=== PATIENT | female | born 1945 | race Caucasian/White ===

== ENCOUNTER → 2019-01-20 | Day surgery (SDC) | payer MEDICARE, BC ==
[~2019-01-20] MED LIST: Lactated Ringers 1,000 ML IV SCH; Propofol 200 MG/20 ML SDV IV ONE
--- NOTE | 2019-01-20 10:30 | OR ---
DATE OF OPERATION: 01/20/2019 PREOPERATIVE DIAGNOSIS: FOLLOWUP POLYPS. POSTOPERATIVE DIAGNOSIS: FOLLOWUP POLYPS. SURGEON: Jersey Tesfaye MD PROCEDURE: FULL-LENGTH COLONOSCOPY WITH POLYP REMOVAL X2, BIOPSY X1. ANESTHESIA: MAC via DISPENSING AUDIOLOGIST. COMPLICATIONS: None. SPECIMEN: 1. Cecal biopsy x1. 2. Two small sessile polyps, left colon. FINDINGS: 1. Full-length colonoscopy. 2. Mild early melanosis, cecal pouch. 3. Sessile polyps x2, each 3 to 4 mm. RECOMMENDATIONS: Followup colonoscopy in 5 years. INDICATIONS: The patient has a prior history of colonoscopy with 3 polyps removed. We recommended a routine followup in 5 years. DESCRIPTION OF PROCEDURE: The patient was prepped and draped, placed in the left lateral decubitus position. A lubricated Olympus colonoscope was inserted and easily advanced to the cecum. We were able to directly visualize the ileocecal valve and appendiceal orifice. The bowel prep was fine. Upon withdrawal of the scope, the patient had some very mild melanosis changes in the cecal pouch near the proximal early ascending colon. Biopsy was taken for confirmation. The rest of the ascending and transverse colons were benign. Just past the splenic flexure, in the very proximal descending colon, the patient had a small, flat sessile polyp removed in its entirety with a forceps. The rest of the descending and sigmoid colons were completely benign. There were no other polyps, masses, ulcerations, or bleeding sites. No vascular abnormalities or signs of colitis. 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 The rectal vault had another small, flat sessile polyp also removed with a forceps. Retroflexion showed no perianal lesions. Air was suctioned, scope removed without complication. BARB/MINA /[id number]
== END ==
LOC: CC.SDS 07:24
PROVIDERS: ATTEND Family Medicine
DX: Z12.11 Encounter for screening for malignant neoplasm of colon (principal); K63.5 Polyp of colon; K62.1 Rectal polyp; K55.20 Angiodysplasia of colon without hemorrhage; K63.89 Other specified diseases of intestine; I42.9 Cardiomyopathy, unspecified; E78.5 Hyperlipidemia, unspecified; E03.9 Hypothyroidism, unspecified; Z88.1 Allergy status to other antibiotic agents; Z88.2 Allergy status to sulfonamides; Z95.0 Presence of cardiac pacemaker; Z86.010 Personal history of colon polyps; Z79.82 Long term (current) use of aspirin; Z79.899 Other long term (current) drug therapy
CPT/HCPCS: 45380; J2704; J7120; 00811; 88305

== ENCOUNTER 2024-03-24 07:24 | Day surgery (SDC) | payer MEDICARE, BC ==
[~2024-03-24 07:24] MED LIST changes: -Propofol 200 MG/20 ML SDV IV ONE
[2024-03-24] MEDS: Lactated Ringers 1,000 ML IV SCH (07:44)
== END 2024-03-24 09:54 | disposition home or self-care (01) ==
LOC: CC.SDS 07:24
PROVIDERS: ATTEND Family Medicine
DX: Z12.11 Encounter for screening for malignant neoplasm of colon (principal); D12.0 Benign neoplasm of cecum; D12.2 Benign neoplasm of ascending colon; D12.4 Benign neoplasm of descending colon; K62.1 Rectal polyp; E78.5 Hyperlipidemia, unspecified; E03.9 Hypothyroidism, unspecified; I42.0 Dilated cardiomyopathy; K21.9 Gastro-esophageal reflux disease without esophagitis; Z79.82 Long term (current) use of aspirin; Z79.890 Hormone replacement therapy; Z79.899 Other long term (current) drug therapy; Z88.2 Allergy status to sulfonamides; Z88.8 Allergy status to other drugs, medicaments and biological substances
CPT/HCPCS: 00811; 88305; 99100; J7120